=== PATIENT | male | born 1970 | race Two or more races ===

== ENCOUNTER 2023-05-14 21:47 | Emergency (ER) | payer OTHER ==
[~2023-05-14] VITALS: Ht 180.3 cm; Wt 88.9 kg
[2023-05-14] MEDS ORDERED: DUI500 PO (23:58)
== END 2023-05-15 00:09 | disposition home or self-care (01) ==
LOC: ER 21:48
DX: S61.218A Laceration without foreign body of other finger without damage to nail, initial encounter (principal); W45.8XXA Other foreign body or object entering through skin, initial encounter; Y93.89 Activity, other specified; Y92.89 Other specified places as the place of occurrence of the external cause; Y99.8 Other external cause status